=== PATIENT | female | born 1985 | race Caucasian/White ===

== ENCOUNTER 2016-10-04 18:36 | Inpatient (IN) | payer OTHER ==
[~2016-10-04] VITALS: Ht 172.7 cm; Wt 113.9 kg
[2016-10-04 21:12] LABS: ABSOLUTE BASOPHIL COUNT 0 /CUMM (0.0-0.2); ABSOLUTE EOSINOPHIL COUNT 0.2 /CUMM (0.0-0.7); ABSOLUTE GRANULOCYTE CT 11.2 /CUMM (1.4-6.5); ABSOLUTE LYMPH COUNT 2.2 /CUMM (1.2-3.4); ABSOLUTE MONOCYTE COUNT 0.9 /CUMM (0.10-0.60); BASOPHIL % 0.3 % (0.0-2.0); EOSINOPHIL % 1.4 % (0-5); HEMATOCRIT 31.7 % (37-47); MEAN CORPUSCULAR HGB 29.3 PG (27.0-31.0); MEAN CORPUSCULAR HGB CONC 33.5 G/DL (33.0-37.0); MEAN CORPUSCULAR VOLUME 87.5 FL (81.0-99.0); MEAN PLATELET VOLUME 9.9 FL (7.4-10.4); PLATELET COUNT 198 /CUMM (130-400); RBC DISTRIBUTION WIDTH 13.8 % (11.5-14.5); RED BLOOD CELL CT 3.62 /CUMM (4.20-5.40); WHITE BLOOD CELL COUNT 14.5 /CUMM (4.8-10.8)
--- NOTE | 2016-10-04 22:36 | History & Physical ---
General Information and HPI MD Statement: I have seen and personally examined JAMEL CHANDRA and documented this H&P. The patient is a 31 year old female at [41] weeks and [] days gestation who presented with a chief complaint of [postdates induction]. 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 EENTM: Denies: blurred vision, double vision, visual changes. Cardiovascular: Denies: chest pain, palpitations. Respiratory: Denies: cough, short of breath. GI: Denies: abdominal pain, nausea, vomiting. Genitourinary: Denies: dysuria. Neurological/Psychological: Denies: anxiety, depressed. Exam & Diagnostic Data Last 24 Hrs of Vital Signs/I&O vss Obstetric Exam Wgt Gained During : 20# Pelvimetry: SEEMS ADEQUATE Dilation (cm): 1 Effacement (%): 50 Station: -2 Membranes: intact Fluid: unknown Fundal Height (cm): 40 Multiple Gestation? No Contractions: RARE #1 - FHR Baseline: 144 Category: 1 Estimated Weight: 3800 Presentation: VTX Patient for Induction? Yes Gatica Score Gatica Score Response Value Cervix Position: mid-position 1 Cervix Consistency: medium 1 Cervix Effacement: 30-50% 1 Cervix Dilation: 1-2 cm 1 Cervix Station: -2 1 Total 5 Physical Exam General Appearance Alert, Oriented X3, Cooperative, No Acute Distress Skin No Rashes HEENT Atraumatic Neck Supple Cardiovascular Regular Rate Lungs Clear to Auscultation Abdomen Soft, No Tenderness Neurological Normal Gait, Normal Speech, Strength at 5/5 X4 Ext, Normal Tone, Sensation Intact Extremities No Clubbing Labs Blood Type & Rh: B NEG Antibody Screen: NEG Hct/Hgb & Platelets #1: 35.6/12.1/238 Hct/Hgb & Platelets #2: 34.1/11.6/207 Rubella: IMM VDRL #1: NR VDRL #2: NR HbsAg: NEG HIV #1: NR HIV #2 NR 1 Hr P Group B Strep: NEG Initial Ultrasound: 02/13/2016 [id number] Anatomy Ultrasound: NORMAL AND ECHO FOR LITHIUM EXPOSURE NORMAL Ultrasound for EFW: 07/31/2016 61%TILE 09/02/2016 47%TILE Genetic Testing: msafp EARLY SCREEN NEGATIVE Last 24 Hrs of Labs/Vivek: Laboratory Tests 10/04/161947: CBC w Diff NO MAN DIFF REQ, RBC 3.62 L, MCV 87.5, MCH 29.3, RDW 13.8, MPV 9.9, Gran % 77.0 H, Lymphocytes % 15.3 L, Monocytes % 6.0, Eosinophils % 1.4, Basophils % 0.3, Absolute Granulocytes 11.2 H, Absolute Lymphocytes 2.2, Absolute Monocytes 0.9 H, Absolute Eosinophils 0.2, Absolute Basophils 0, PUBS MCHC 33.5, Urine Opiates Screen < 100.00, Methadone Screen < 40, Barbiturate Screen < 60, Ur Phencyclidine Scrn < 6.00, Amphetamines Screen 106, U Benzodiazepines Scrn < 85, Urine Cocaine Screen < 50, Urine Cannabis Screen 12.60, Urinalysis LIGHT H, Urine Color YEL, Urine Clarity HAZY H, Urine pH 6.0 , Ur Specific [place] >= 1.030, Urine Protein 100 H, Urine Ketones NEG, Urine Nitrite NEG, Urine Bilirubin NEG, Urine Urobilinogen 1.0, Ur Leukocyte Esterase NEG, Ur Microscopic SEDIMENT EXAMINED, Urine RBC RARE, Urine WBC RARE, Ur Epithelial Cells MANY H, Urine Bacteria MANY H, Urine Mucus MANY H, Urine Hemoglobin NEG, Urine Glucose NEG Assessment/Plan Assessment/Plan: pt approaching post datism CERVIDIL CERVICAL RIPENING h/o obesity Rh negative RECIEVED RHOGAM AT 28 WEEKS Rheumatoid Arthritis Bi Polar disease ON LITHIUM Fibromyalgia IBS Endometriosis Migrain JONES As Ranked By This Provider Problem List: 1. Post-dates Core Measures/Miscellaneous Venous Thromboembolism VTE Risk Factors: Obesity, / VTE Contraindications: No Contraindications VTE Diagnosis: No Beta Tony Is Beta Tony a Home Med? No Antibiotics Is Patient on Antibiotics? No Attending MD Review Statement Attending Statement Attending MD Statement: examined this patient, discussed with family, discussed w/nursing
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
--- NOTE | 2016-10-05 14:33 | PN- OBGYN ---
Surgical Brief Attending Note Brief Attending Note: comfortable with epidural. no complaints. VSSAF FHTs 130s cat 1-2 TOCO: q 2 min cvx 3/80/-2 a/p 41+1 weeks, IOL for postdates . SROM clear fluid at 1425. Anticipate .
--- NOTE | 2016-10-05 15:55 | PN- OBGYN ---
Surgical Brief Attending Note Brief Attending Note: notified by RN that rectal pressure. FHR 120s cat 1 toco q 2-4, difficult to monitor CVX no change 3/75-80/-2 a/p 41+1 . IOL. s/p cervidil overnight. s/p epiduralchanged to 3 cm. IUPC placed to monitor MVUs. Pitocin prn.
--- NOTE | 2016-10-05 19:15 | PN- OBGYN ---
Surgical Brief Attending Note Brief Attending Note: pt c/o more pain. VSSAF FHTs until 7pm , FHR 120s cat 1. at time of exam, decel noted to roc of 90s x ?4-5min. pitocin was at 4 TOCO q3 min. sometimes irregular. cvx: 4/80/-2 FSE applied. a/p 41+1. IOL. decel x 1. recovered with repositioning, oxygen, and turning off pitocin . will await 30 min and if reassuring, will restart pit at 2mu/min
--- NOTE | 2016-10-05 21:10 | PN- OBGYN ---
Surgical Brief Attending Note Brief Attending Note: no complaints. continues to complain of pain VSSAF FHTs 130s cat 1. no further decels since last evalaution TOCo q 2-4 min, pitocin at 3mu/min MVUs 170-200 Cvx 4/80/-2 , no significant change a/p 41+1 IOL . continue pitocin IOL. no change since last exam. I suspect she is now in active labor and would anticipate more change between exams. Continue pitocin and reevaluate in 1-2 hours.
--- NOTE | 2016-10-05 23:30 | PN- OBGYN ---
Surgical Brief Attending Note Brief Attending Note: complains of pain. has had multiple epidural boluses. VSSAF FHTs 140s, Cat1 [place]:q 2 min-3min cvx 5-6cm/80/-1 a/p 41+1 weeks. IOL. some cervical change noted. continue active management of labor.
--- NOTE | 2016-10-06 01:45 | Labor & Delivery Summary ---
Delivery Summary Vaginal Delivery: Vaginal: vertex Episiotomy/Lacerations: Episiotomy/Lacerations: 2ND Repair: 3-0 POLYSORB Anesthesia: EPIDURAL AND LOCAL. .5%MARCAINE Placenta: Placenta: spontanteous, normal, 3 vessel Anesthesia: block Apgars - 1 Min: 9 Apgars - 5 Min: 9 Additional Comments: PT PROGRESSED FROM 5-6 TO FULLY RELATIVELY QUICKLY. LIP REDUCED AND PT PUSHED. HEAD DELIVERED WITHOUT DIFFICULTY. SHOULDERS AND INFANT DELIVERED ATRAUMATICALLY. GOOD CRY NOTED. INFANT DRIED AND STIMULATED AND BULB SUCTIONED AND PLACED ON MATERNAL ABDOMEN. CORD CLAMPED AND CUT WHILE INFANT ON MATERNAL ABDOMEN. REPAIR PERFORMED IN USUAL FASHION. PATIENT TOLERATED WELL.
[2016-10-06 02:13] VITALS: BP 126/78
--- NOTE | 2016-10-06 09:35 | PN- OBGYN ---
Surgical Brief Attending Note Brief Attending Note: PPD#0 pt is ambulating, feeling well, no compalints, tolerate diet, void without difficulties. PE: VSS CV RRR Lungs CTA B/L Abdomen: soft, nontender, uetersu firm, fudnus at umbilical level. lochia mild Ext: DCT (-) A/P: 31 yo, s/p , PPD#0 1. encourage ambulation. 2. pain management as needed 3. pt is taking lithium , subutox , etc, will be per pediatricain recommendation. 4.RT PP care
--- NOTE | 2016-10-07 09:11 | PN- Post Delivery/GYN ---
Subjective Subjective: FEELING WELL Review of Systems Constitutional: Reports: no symptoms. Denies: chills, fever. EENTM: Denies: blurred vision, double vision, visual changes. Cardiovascular: Denies: chest pain. Respiratory: Denies: cough, short of breath. Gastrointestinal: Denies: diarrhea, nausea, vomiting. Genitourinary: Denies: frequency. Objective Last 24 Hrs of Vital Signs/I&O vss Physical Exam General Appearance Alert, Oriented X3, Cooperative, No Acute Distress Cardiovascular Regular Rate Lungs Clear to Auscultation Abdomen Normal Bowel Sounds, Soft, fundus firm Neurological Normal Gait, Normal Speech, Strength at 5/5 X4 Ext Extremities 2+ pedal edema Pelvic (FEMALE) lochia serosanganous Current Medications: Current Medications Sig/Sunny Start time Last Medication Dose Route Stop Time Status Admin Acetaminophen 650 MG Q4P PRN 10/06 0145 AC 10/06 PO 2212 Buprenorphine 2 MG TID 10/05 0130 AC 10/06 SL 2213 Docusate Sodium 100 MG BID PRN 10/06 0145 AC 10/06 PO 2212 Enoxaparin Sodium 40 MG DAILY 10/06 1300 AC 10/06 SC 1259 Gabapentin 1,200 MG AT BEDTIME 10/05 2200 AC 10/06 PO 2209 Hydroxyzine HCl 50 MG AT BEDTIME NEED.. 10/06 0145 AC PO Hydroxyzine HCl 100 MG AT BEDTIME NEED.. 10/04 2230 AC 10/05 PO 0138 Lactated Ringer's 1,000 ML Q8H 10/04 1945 AC 10/05 IV 1803 [place] Carbonate 900 MG AT BEDTIME 10/05 2200 AC 10/06 PO 2207 [place] Carbonate 450 MG QAM 10/05 1000 AC 10/06 PO 0957 Magnesium Hydroxide 30 ML DAILY PRN 10/06 0145 AC PO Morphine Sulfate 10 MG ONCE PRN 10/04 2230 AC 10/05 IM 0138 Oxcarbazepine 600 MG AT BEDTIME 10/05 2200 AC 10/06 PO 2212 Oxcarbazepine 300 MG QAM 10/05 1000 AC 10/06 PO 0957 Senna 374 MG AT BEDTIME NEED.. 10/06 0145 AC PO Assessment/Plan Assessment/Plan PPD #1 vss afebrile Problem List: 1. Post-dates , delivered, current hospitalization Attending MD Review Statement Attending Statement Attending MD Statement: examined this patient, discussed with family, discussed with nursing
[2016-10-07 10:14] LABS: ABSOLUTE BASOPHIL COUNT 0 /CUMM (0.0-0.2); ABSOLUTE EOSINOPHIL COUNT 0.2 /CUMM (0.0-0.7); ABSOLUTE GRANULOCYTE CT 10.6 /CUMM (1.4-6.5); ABSOLUTE LYMPH COUNT 2.1 /CUMM (1.2-3.4); ABSOLUTE MONOCYTE COUNT 0.9 /CUMM (0.10-0.60); BASOPHIL % 0.3 % (0.0-2.0); EOSINOPHIL % 1.6 % (0-5); GRANULOCYTE % 76.2 % (42.2-75.2); HEMATOCRIT 30.4 % (37-47); MEAN CORPUSCULAR HGB 28.9 PG (27.0-31.0); MEAN CORPUSCULAR HGB CONC 33.2 G/DL (33.0-37.0); MEAN CORPUSCULAR VOLUME 86.9 FL (81.0-99.0); MEAN PLATELET VOLUME 9.5 FL (7.4-10.4); PLATELET COUNT 213 /CUMM (130-400); RBC DISTRIBUTION WIDTH 13.8 % (11.5-14.5); RED BLOOD CELL CT 3.49 /CUMM (4.20-5.40); WHITE BLOOD CELL COUNT 13.9 /CUMM (4.8-10.8)
--- NOTE | 2016-10-08 09:20 | PN- OBGYN ---
Surgical Brief Attending Note Brief Attending Note: PPD#2 pt is mbulating, doing well, c/o edema on lower extremities. tolerate diet, void without difficulties. PE: VSS Cv RRR Lungs CTA B/L Abdomen: soft, nontender, uterus firm, fundus below umbilicus, lochia mild Ext: DCT (-), edema 2+ A/P: 31 yo, s/p , PPD #2 1. encourage ambulation 2. pain management as needed 3. will d/c home, f/u in office in 2 wks and 6 wks
[2016-10-08] MEDS ORDERED: TYLENOL325 M1 PO (09:21)
== END 2016-10-08 13:12 | DRG 560 ==
LOC: GNO 18:36
PROVIDERS: Obstetrics & Gynecology; ADMIT Obstetrics & Gynecology
PROC: 3E0P7GC Introduction of Other Therapeutic Substance into Female Reproductive, Via Natural or Artificial Opening (ICD-10-PCS; 2016-10-04)
PROC: 10E0XZZ Delivery of Products of Conception, External Approach (ICD-10-PCS; principal; 2016-10-06)
PROC: 0KQM0ZZ Repair Perineum Muscle, Open Approach (ICD-10-PCS; 2016-10-06)
DX: O48.0 Post-term pregnancy (principal); O70.1 Second degree perineal laceration during delivery; Z3A.41 41 weeks gestation of pregnancy; Z37.0 Single live birth; M06.9 Rheumatoid arthritis, unspecified; O99.343 Other mental disorders complicating pregnancy, third trimester; F32.9 Major depressive disorder, single episode, unspecified; O99.214 Obesity complicating childbirth; O26.893 Other specified pregnancy related conditions, third trimester; Z67.91 Unspecified blood type, Rh negative; O99.89 Other specified diseases and conditions complicating pregnancy, childbirth and the puerperium; M79.7 Fibromyalgia; N80.9 Endometriosis, unspecified; O99.353 Diseases of the nervous system complicating pregnancy, third trimester; G43.909 Migraine, unspecified, not intractable, without status migrainosus; G89.29 Other chronic pain; O99.334 Smoking (tobacco) complicating childbirth
CPT/HCPCS: GNOP; GNOS; 36415; 80307; 81001; 81003; 82570; 86920; 86922; 87086; 87389; 88307; G0463; J0574; J1200; J1650; J2790; J7120